=== PATIENT | male | born 1990 | race Caucasian/White ===

== ENCOUNTER → 2018-03-16 | Outpatient (CLI) | payer OTHER ==
[~2018-03-16] MED LIST: 0.9 % SODIUM CHLORIDE 10 ML VIAL ONE; DEXAMETHASONE SOD PHOS 4 MG/ML VIAL ONE; IOHEXOL 300 MG/ML 50 ML VIAL. ONE; LIDOCAINE 1% PF 2 ML VIAL. ONE
== END | disposition home or self-care (01) ==
LOC: SURG 14:56
PROVIDERS: ATTEND Anesthesiology
DX: M54.14 Radiculopathy, thoracic region (principal); J45.909 Unspecified asthma, uncomplicated; Z79.899 Other long term (current) drug therapy; Z88.0 Allergy status to penicillin; Z88.1 Allergy status to other antibiotic agents; Z88.2 Allergy status to sulfonamides; Z72.89 Other problems related to lifestyle; Z72.0 Tobacco use; Z98.890 Other specified postprocedural states
CPT/HCPCS: 62321; J1100; Q9967

== ENCOUNTER 2018-06-15 14:18 | Emergency (ER) | payer OTHER ==
[~2018-06-15] VITALS: Ht 180.3 cm; Wt 113.4 kg
--- NOTE | 2018-06-15 15:01 | PHYS DOC ---
Past History Past Medical History: No Pertinent History Past Surgical History: Other Smoking: Non-smoker Alcohol Use: None Drug Use: None Adult General Chief Complaint Chief Complaint: FINGER INJURY [facility] HPI Patient is a 27 year old right handed male who presents with with complaining of injury to right thumb. Patient states he was using a vegetable slicer and caught the tip of his thumb and the bleeding does not stop. Patient denies other injuries and focal neurodeficit. Patient is up-to-date with his tetanus immunization. Review of Systems Review of Systems Constitutional: Denies fever or chills [] Eyes: Denies change in visual acuity, redness, or eye pain [] HENT: Denies nasal congestion or sore throat [] Respiratory: Denies cough or shortness of breath [] Cardiovascular: No additional information not addressed in HPI [] GI: Denies abdominal pain, nausea, vomiting, bloody stools or diarrhea [] : Denies dysuria or hematuria [] Musculoskeletal: Denies back pain or joint pain [] Integument: Denies rash or skin lesions , reports laceration[] Neurologic: Denies headache, focal weakness or sensory changes [] Endocrine: Denies polyuria or polydipsia [] All other systems were reviewed and found to be within normal limits, except as documented in this note. Allergies Allergies Allergies Coded Allergies Type Severity Reaction Last Updated Verified Sulfa (Sulfonamide Antibiotics) Allergy Intermediate 06/15/18 Yes amoxicillin Allergy Intermediate 06/15/18 Yes Uncoded Allergies Type Severity Reaction Last Updated Verified PCN Adverse Reaction Intermediate 06/15/18 Physical Exam Physical Exam Constitutional: Well developed, well nourished, mild distress, non-toxic appearance. [] HENT: Normocephalic, atraumatic Eyes: PERRLA, EOMI, conjunctiva normal, no discharge. [] Neck: Normal range of motion, no tenderness, supple, no stridor. [] Cardiovascular:Heart rate regular rhythm, no murmur [] Lungs & Thorax: Bilateral breath sounds clear to auscultation [] Skin: Warm, dry, no erythema, no rash. [] Back: No tenderness, no CVA tenderness. [] Extremities: Right thumb with partial skin thickness missing in volar side of the thumb with active bleeding without neurovascular, no cyanosis, no clubbing, ROM intact, no edema. [] Neurologic: Alert and oriented X 3, normal motor function, normal sensory function, no focal deficits noted. [] Psychologic: Affect normal, judgement normal, mood normal. [] Current Patient Data Vital Signs Vital Signs Date Time Temp Pulse Resp B/P (MAP) Pulse Ox O2 Delivery O2 Flow Rate FiO2 06/15/18 14:30 98.2 80 20 97 Room Air EKG EKG [] Radiology/Procedures Radiology/Procedures [] Course & Med Decision Making Course & Med Decision Making Pertinent Labs and Imaging studies reviewed. (See chart for details) [] Dragon Disclaimer Dragon Disclaimer This electronic medical record was generated, in whole or in part, using a voice recognition dictation system. Departure Departure: Impression: Primary Impression: Laceration of thumb, right Disposition: HOME, SELF-CARE (at 1518) Condition: IMPROVED Referrals: SANDRA BENOIT DO (PCP) Patient Instructions: Fingertip Laceration, Tissue Adhesive Wound Care Additional Instructions: keep wound clean and dry Follow-up with your primary care physician in 3-5 days Return to ER if not getting better Laceration Repair Lac Repair Indication: Right thumb laceration Procedure: The patient was placed in the appropriate position and after applying finger tourniquet area of missing missing skin of right thumb was repaired with Dermabond and Steri-Strip. Dressing with Coban was applied. Total repaired wound length: 1 cm Other Items: [OTHER ITEMS] The patient tolerated the procedure well. Complications:none. MARVA LORD MD Jun 15, 2018 15:01
[2018-06-15 15:52] VITALS: BP 157/93
== END 2018-06-15 15:56 | disposition home or self-care (01) ==
LOC: ER 14:18
DX: S61.011A Laceration without foreign body of right thumb without damage to nail, initial encounter (principal); Z88.2 Allergy status to sulfonamides; Z88.1 Allergy status to other antibiotic agents; W27.8XXA Contact with other nonpowered hand tool, initial encounter; Y93.89 Activity, other specified; Y92.89 Other specified places as the place of occurrence of the external cause; Y99.8 Other external cause status
CPT/HCPCS: 12001; 99283

== ENCOUNTER → 2018-09-14 | Outpatient (CLI) | payer OTHER | END | disposition home or self-care (01) | LOC: SURG 09:35 | PROVIDERS: ATTEND Anesthesiology | DX: M54.14 Radiculopathy, thoracic region (principal) | CPT/HCPCS: 99214 ==

== ENCOUNTER → 2018-11-30 | Outpatient (CLI) | payer OTHER ==
[~2018-11-30] MED LIST changes: +DEXAMETHASONE SOD PHOS 10 MG/ML VIAL ONE; -DEXAMETHASONE SOD PHOS 4 MG/ML VIAL ONE; -LIDOCAINE 1% PF 2 ML VIAL. ONE; +LIDOCAINE 1% PF 30 ML VIAL. ONE
== END | disposition home or self-care (01) ==
LOC: SURG 10:14
PROVIDERS: ATTEND Anesthesiology
DX: M54.14 Radiculopathy, thoracic region (principal); J45.909 Unspecified asthma, uncomplicated; J32.9 Chronic sinusitis, unspecified; Z72.0 Tobacco use; Z98.890 Other specified postprocedural states; Z88.0 Allergy status to penicillin; Z88.2 Allergy status to sulfonamides; Z88.1 Allergy status to other antibiotic agents
CPT/HCPCS: 62321; J1100; J2001; Q9967

== ENCOUNTER → 2019-05-25 | Outpatient (CLI) | payer OTHER ==
--- NOTE | 2019-05-25 15:22 | RAD ---
3 view study of the right hand Clinical indications: Fell down stairs. Swelling and bruising. FINDINGS: No acute fracture or dislocation or lytic process is evident. Alignment is normal. IMPRESSION: No acute fracture. Electronically signed by: Pino Carpio MD (05/25/2019 3:19 PM) [facility]
== END | disposition home or self-care (01) ==
LOC: DXRAD 14:34
PROVIDERS: ATTEND Nurse Practitioner Family
DX: S69.91XA Unspecified injury of right wrist, hand and finger(s), initial encounter (principal); W10.9XXA Fall (on) (from) unspecified stairs and steps, initial encounter; Y93.89 Activity, other specified; Y92.89 Other specified places as the place of occurrence of the external cause; Y99.8 Other external cause status
CPT/HCPCS: 73130

== ENCOUNTER 2019-07-21 00:22 | Emergency (ER) | payer OTHER ==
[~2019-07-21] VITALS: Ht 180.3 cm; Wt 105.0 kg
--- NOTE | 2019-07-21 00:43 | PHYS DOC ---
Past History Past Medical History: Alcoholism, Anxiety, Depression Past Medical History Limited secondary to ETOH intoxication. Past Surgical History: Other Additional Past Surgical Histo: Chest wall "lump" removed Past Surgical History Limited secondary to ETOH intoxication. Smoking: Cigarettes, Less than 1pk/day Additional Smoking Information: Vapes Alcohol Use: None Drug Use: None Social History Limited secondary to ETOH intoxication. Adult General Chief Complaint Chief Complaint: ETOH intoxication, suidical ideation HPI HPI 28-year-old male presents via EMS with report of being found unresponsive in his vehicle. Patient with history of alcoholism. Reports had been driving to work after drinking several beers. Patient reports he drinks approximately 24 beers daily. Reports had recently gone through alcohol 30 day treatment program. Reports upon getting out of treatment center his spouse and children ended up leaving him. Patient reports depression and anxiety. Reports now has thoughts of suicidality. EMS had reported initial oxygen saturation low. EMS had pulled patient out of vehicle and gave several breaths with [id number] at which point patient awoke. Interval improvement of oxygen saturation. Patient denies any headache or chest pain. Denies cough. Denies use of drugs. History of present illness limited secondary to patient's alcohol intoxication. Review of Systems Review of Systems Constitutional: Denies fever or chills Eyes: Denies redness or eye pain HENT: Denies nasal congestion or sore throat Respiratory: Denies cough or shortness of breath Cardiovascular: Denies chest pain or palpitations GI: Denies nausea or vomiting Integument: Denies rash or skin lesions Review of systems limited secondary to alcohol intoxication Current Medications Current Medications Current Medications Medications (Trade) Dose Ordered Sig/Faiza Start Time Stop Time Status Last Admin Dose Admin Multivitamins/ Minerals 10 ml/ Folic Acid 1 mg/ Thiamine HCl 100 mg/Sodium Chloride 1,011.3 ml @ 1,000.187 mls/hr 1X ONCE 07/21/19 00:45 07/21/19 01:45 UNV Allergies Allergies Allergies Coded Allergies Type Severity Reaction Last Updated Verified Sulfa (Sulfonamide Antibiotics) Allergy Intermediate 06/15/18 Yes amoxicillin Allergy Intermediate 06/15/18 Yes Uncoded Allergies Type Severity Reaction Last Updated Verified PCN Adverse Reaction Intermediate 06/15/18 Physical Exam Physical Exam Constitutional: Well developed, well nourished, intoxicated, anxious HENT: Normocephalic, atraumatic, oropharynx moist Eyes: PERRL, EOMI, conjunctiva injected bilaterally, no discharge, horizontal nystagmus noted Neck: Normal range of motion, no tenderness, supple Cardiovascular: Heart rate normal, regular rhythm Lungs & Thorax: Bilateral breath sounds clear to auscultation, no wheezing Abdomen: Soft, no tenderness Skin: Warm, dry, no erythema, no rash Extremities: No tenderness, ROM intact, no edema Neurologic: Alert and oriented X 3, no focal deficits noted Psychologic: Intoxicated, reports suicidal ideation EKG EKG @0045 Sinus tachycardia at 105bpm, NO ST elevation, low voltage QRS, QRS 98ms, QT/QTc 318/424ms Radiology/Procedures Radiology/Procedures [] Course & Med Decision Making Course & Med Decision Making Pertinent Lab studies reviewed. (See chart for details) Intoxicated patient presents with report of being found unresponsive in his vehicle. Some vague report of low O2 sat upon EMS arrival. Patient was subsequent resolution and stable on monitor on room air. Patient does appear acutely intoxicated. Reports suicidality. Labs obtained and posted to chart. Banana bag initiated. Plan for initiation of tele-psychiatric assessment once clinically sober. Tele-psychiatric assessment performed. Patient deemed to be safe for discharge home with close outpatient follow-up with behavioral health/psychiatric servi linnea. Patient stable for discharge with outpatient follow-up with PCP/behavioral health/drug and alcohol addiction. Discussed findings and plan with patient, who acknowledges understanding and agreement. Dragon Disclaimer Dragon Disclaimer This electronic medical record was generated, in whole or in part, using a voice recognition dictation system. Departure Departure: Impression: Primary Impression: Suicidal ideation Additional Impression: Alcohol intoxication Disposition: 01 HOME, SELF-CARE Condition: STABLE Referrals: LILO MOTA (PCP) Patient Instructions: Alcohol Intoxication, [id number], Alcohol and Drug Addiction, Finding Treatment, How Much is Too Much Alcohol, [id number], Suicidal Feelings, How to Help Yourself Problem Qualifiers Additional Impression: Alcohol intoxication Complication of substance-induced condition: uncomplicated Qualified Codes: F10.920 - Alcohol use, unspecified with intoxication, uncomplicated LORENZA VU DO Jul 21, 2019 00:43
--- NOTE | 2019-07-21 01:00 | EKG ---
[address] [address] Test Date: 2019-07-21 Test Time: 00:45:38 Pat Name: VEE RAMIREZ Department: Room: Gender: M [employer]: : [id number] Requested By: LORENZA VU Order Number: [id number] Reading MD: Measurements Intervals [place] Rate: 105 P: 48 NV: 140 QRS: 8 QRSD: 98 T: 41 QT: 318 QTc: 424 Interpretive Statements SINUS TACHYCARDIA OTHERWISE NORMAL ECG RI6.01 No previous ECG available for comparison
[2019-07-21 01:24] LABS: BASO % 0 % (0-3); EOS % 1 % (0-3); HEMATOCRIT 43.9 % (39.0-53.0); HEMOGLOBIN 14.7 g/dL (13.0-17.5); LYMPH # 0.8 x10^3/uL (1.0-4.8); LYMPH % 10 % (24-48); MEAN CORPUSCULAR HEMOGLOBIN 30 pg (25-35); MEAN CORPUSCULAR HGB CONC 34 g/dL (31-37); MEAN CORPUSCULAR VOLUME 90 fL (79-100); MONO # 0.6 x10^3/uL (0.0-1.1); MONO % 7 % (0-9); NEUT # 6.5 x10^3uL (1.8-7.7); NEUT % 82 % (31-73); PLATELET COUNT 326 x10^3/uL (140-400); RED BLOOD COUNT 4.91 x10^6/uL (4.30-5.70)
[2019-07-21 01:36] LABS: ACETAMIN < 2.0 mcg/mL (10-30); SALIC 1.3 mg/dL (2.8-20.0)
[2019-07-21] MEDS ORDERED: FOLIC ACID 1 MG TABLET ONE (01:36)
[2019-07-21] MEDS ORDERED: MVI, ADULT NO.4 WITH VIT K 10 ML VIAL IV ONE (01:36)
[2019-07-21] MEDS ORDERED: THIAMINE 200 MG/2 ML VIAL. IV ONE (01:36)
[2019-07-21 01:39] LABS: BACTERIA,URINE 0 /HPF (0-FEW); BILIRUBIN,URINE NEG (NEG); CLARITY,URINE CLEAR; COLOR,URINE YELLOW; GLUCOSE,URINE NEG (NEG); NITRITE,URINE NEG (NEG); RBC,URINE 0 /HPF (0-2); SQUAMOUS EPITHELIAL CELL,UR OCC /LPF; UROBILINOGEN,URINE 0.2 mg/dL (0.2 mg/dL); WBC,URINE RARE /HPF (0-4)
[2019-07-21 01:45] LABS: MAGNESIUM 2.2 mg/dL (1.8-2.4)
[2019-07-21 01:50] LABS: BARBITURATES NEG (NEG); BENZODIAZEPINES NEG (NEG); CANNABINOIDS NEG (NEG); COCAINE NEG (NEG); METHADONE NEG (NEG); OPIATES POS (NEG); PHENCYCLIDINE NEG (NEG)
[2019-07-21 01:53] LABS: AMPHETAMINE/METHAMPHETAMINE NEG (NEG)
[2019-07-21] MEDS ORDERED: FOLIC ACID 1 MG TABLET PO ONE (02:00)
[2019-07-21] MEDS ORDERED: MVI, ADULT NO.4 WITH VIT K 10 ML, THIAMINE INJ 100 MG in IV NORMAL SALINE 1,000ML 1,000... IV ONE ×3 (02:00)
[2019-07-21] MEDS ORDERED: IBUPROFEN 600 MG TABLET. PO ONE (03:15)
[2019-07-21 05:20] VITALS: BP 164/93
[2019-07-21 05:34] LABS: CALCIUM 8.3 mg/dL (8.5-10.1); CREATININE 1.2 mg/dL (0.7-1.3); GFR 71.1; POTASSIUM 4.6 mmol/L (3.5-5.1)
[2019-07-21 05:39] LABS: ALBUMIN 4.2 g/dL (3.4-5.0); ALBUMIN/GLOBULIN RATIO 1.1 (1.0-1.7); TOTAL BILIRUBIN 0.1 mg/dL (0.2-1.0)
== END 2019-07-21 05:25 | disposition home or self-care (01) ==
LOC: ER 00:22
DX: F10.129 Alcohol abuse with intoxication, unspecified (principal); R45.851 Suicidal ideations; F41.9 Anxiety disorder, unspecified; F32.9 Major depressive disorder, single episode, unspecified; Z88.1 Allergy status to other antibiotic agents; Z88.2 Allergy status to sulfonamides; Y90.6 Blood alcohol level of 120-199 mg/100 ml
CPT/HCPCS: 36415; 80053; 80307; 80329; 81001; 82553; 83735; 84484; 85025; 93005; 96365; 99285; G0480; 82003; J7030

== ENCOUNTER 2019-08-02 19:04 | Emergency (ER) | payer OTHER ==
[~2019-08-02] VITALS: Ht 180.3 cm; Wt 105.0 kg
[2019-08-02 19:35] VITALS: BP 164/96
--- NOTE | 2019-08-02 20:20 | PHYS DOC ---
Past History Past Medical History: Alcoholism, Anxiety, Depression Additional Past Medical Histor: alcoholism Past Surgical History: Other Additional Past Surgical Histo: Chest wall "lump" removed Smoking: Cigarettes, Less than 1pk/day Alcohol Use: Heavy Drug Use: None Adult General Chief Complaint Chief Complaint: LACERATION/AVULSION... " I busted my lip during basket ball game... " [facility] HPI Patient is a 28 year old male who presents with upper lip laceration. Upper lip laceration is 2 cm and star-shaped at lip edge. Laceration goes clear to mucosa and has a approximate 2 cm laceration on the inside of mouth. Teeth are stable. Has good bite. No loss of consciousness. Patient's tetanus up-to-date. No recent travel. No specific contacts. No history immunosuppression. He follows with Dr. Navarrete. Review of Systems Review of Systems Constitutional: Denies fever or chills [] Eyes: Denies change in visual acuity, redness, or eye pain [] HENT: Denies nasal congestion or sore throat [. Patient complains of upper lip laceration Respiratory: Denies cough or shortness of breath [] Cardiovascular: No additional information not addressed in HPI [] GI: Denies abdominal pain, nausea, vomiting, bloody stools or diarrhea [] : Denies dysuria or hematuria [] Musculoskeletal: Denies back pain or joint pain [] Integument: Denies rash or skin lesions [] Neurologic: Denies headache, focal weakness or sensory changes [] Endocrine: Denies polyuria or polydipsia [] All other systems were reviewed and found to be within normal limits, except as documented in this note. Family History Family History Noncontributory to presentation Current Medications Current Medications See nursing for home meds Allergies Allergies Allergies Coded Allergies Type Severity Reaction Last Updated Verified Sulfa (Sulfonamide Antibiotics) Allergy Intermediate 06/15/18 Yes amoxicillin Allergy Intermediate 06/15/18 Yes Uncoded Allergies Type Severity Reaction Last Updated Verified PCN Adverse Reaction Intermediate 06/15/18 Physical Exam Physical Exam Constitutional: Well developed, well nourished, moderately acute distress, non- toxic appearance. [] HENT: Normocephalic, through and through laceration of upper lip, bilateral external ears normal, oropharynx moist, no oral exudates, nose normal. No trismus. Good bite. Teeth are stable Eyes: PERRLA, EOMI, conjunctiva normal, no discharge. [] Neck: Normal range of motion, no tenderness, supple, no stridor. [] Cardiovascular:Heart rate regular rhythm, no murmur [] Lungs & Thorax: Bilateral breath sounds clear to auscultation [] Abdomen: Bowel sounds normal, soft, no tenderness, no masses, no pulsatile masses. [] Skin: Warm, dry, no erythema, no rash. [] Back: No tenderness, no CVA tenderness. [] Extremities: No tenderness, no cyanosis, no clubbing, ROM intact, no edema. [] Neurologic: Alert and oriented X 3, normal motor function, normal sensory function, no focal deficits noted. [] Psychologic: Affect anxious, judgement normal, mood normal. [] Current Patient Data Vital Signs Vital Signs Date Time Temp Pulse Resp B/P (MAP) Pulse Ox O2 Delivery O2 Flow Rate FiO2 08/02/19 19:35 99.0 99 20 164/96 (118) 99 Room Air EKG EKG [] Radiology/Procedures Radiology/Procedures [] Course & Med Decision Making Course & Med Decision Making Pertinent Labs and Imaging studies reviewed. (See chart for details) Procedure note- laceration repair-wound clean with saline and Betadine. Injected laceration with 2% lidocaine.. Use of 4-0 Vicryl x 3 for internal closure of lip after irrigation with saline. Mucosa area of upper lip closed with 4-0 Vicryl x 6. External lip closed with 6-0 Prolene x 4. Patient apply Polysporin externally 4 times a day. External sutures to be removed in 5 days. Internal sutures will dissolve. Patient to rinse mouth with peroxide or Listerine after eating patient to have a soft diet. Patient take Tylenol and ibuprofen for pain. Patient return if any concerns. Patient to use ice packs as needed. Advised patient he will have a scar. If unhappy with scar results, he is to follow-up with plastic surgery after adequate healing and scar contracture. Recommended patient not to smoke. Keep clean and dry. Polysporin 4 x day . Soft diet. Sutures out in 5 days. Impression: 1. Upper Lip Laceration.- Through and through laceration 2 cm [] Dragon Disclaimer Dragon Disclaimer This electronic medical record was generated, in whole or in part, using a voice recognition dictation system. Departure Departure: Disposition: 01 HOME/RESIDENCE PRIOR TO ADM Condition: STABLE Referrals: LILO MOTA (PCP) Scripts Bacitracin/Polymyxin B Sulfate (POLYSPORIN OINTMENT) 28.3 Gm Oint...g. 28.3 GM TP QID for out side laceration., #120 [facility] [place] Prov: RALEIGH MENDIOLA MD 08/02/19 Champ Disclaimer This chart was dictated in whole or in part using Voice Recognition software in a busy, high-work load, and often noisy Emergency Department environment. It may contain unintended and wholly unrecognized errors or omissions. Dragon Disclaimer This chart was dictated in whole or in part using Voice Recognition software in a busy, high-work load, and often noisy Emergency Department environment. It may contain unintended and wholly unrecognized errors or omissions. RALEIGH MENDIOLA MD Aug 02, 2019 20:20
[2019-08-02] MEDS ORDERED: LIDOCAINE 2% 20 ML VIAL. IJ ONE (20:30)
[2019-08-02] MEDS ORDERED: BACI28.34 TP (21:02)
== END 2019-08-02 21:08 | disposition home or self-care (01) ==
LOC: ER 19:04
DX: S01.511A Laceration without foreign body of lip, initial encounter (principal); F17.210 Nicotine dependence, cigarettes, uncomplicated; F10.20 Alcohol dependence, uncomplicated; Z88.2 Allergy status to sulfonamides; Z88.1 Allergy status to other antibiotic agents; Y90.9 Presence of alcohol in blood, level not specified; W21.05XA Struck by basketball, initial encounter; Y93.67 Activity, basketball; Y92.89 Other specified places as the place of occurrence of the external cause; Y99.8 Other external cause status
CPT/HCPCS: 12011; 99282; J2001